=== PATIENT | female | born 1965 | race Caucasian/White ===

== ENCOUNTER 2020-10-26 17:03 | Observation (INO) | payer BC, OTHER ==
[2020-10-26 17:53] LABS: Absolute Neutrophil Ct (ANC) 11.48 (1.4-6.9); BASOPHIL % 0.3 % (0.0-0.4); Basophil (Absolute #) 0.04 (0-0.4); Eosinophil % 1.5 % (0.00-5.0); Eosinophil (Absolute #) 0.22 (0-0.5); Hemoglobin 13.6 gm/dl (12.0-16.0); Lymphocyte (Absolute #) 1.98 (1.0-4.6); Lymphocytes % 13.6 % (24.0-44.0); Mean Cell Volume 92.3 fl (78-100); Mean Corpuscular Hemoglobin 30.6 pg (26-32); Mean Corpuscular Hgb Concent. 33.2 g/dl (32-36); Mean Platelet Volume 9.6 fl (7.5-11.0); Monocyte (Absolute #) 0.82 (0.0-1.3); Monocytes % 5.6 % (0.0-12.0); Platelet Count 359 K/mm3 (150-450); Red Blood Count 4.44 M/mm3 (4.1-5.4); Red Cell Distribution Width 12.3 % (11.5-14.0); White Blood Count 14.5 K/mm3 (4.0-10.5)
[2020-10-26 18:04] LABS: ALBUMIN 4.8 g/dL (3.5-5.0); ALKALINE PHOSPHATASE 88 U/L (38-126); ANION GAP 13.3 MEQ/L (5-15); BLOOD UREA NITROGEN 12 mg/dL (7-17); CHLORIDE 98 mmol/L (98-107); Calcium 9.9 mg/dL (8.4-10.2); Carbon Dioxide 27 mmol/L (22-30); Creatinine 1 0.71 mg/dL (0.52-1.04); EST GLOMERULAR FILTRATION RATE > 60.0 ML/MIN; Glucose 124 mg/dL (74-106); NT PRO BNP 39.9 pg/mL (0-900); Potassium 3.4 mmol/L (3.5-5.1); SGOT/AST 30 U/L (14-36); SGPT/ALT 21 U/L (0-35); SODIUM 134 mmol/L (137-145); Total Protein 8.3 g/dL (6.3-8.2)
--- NOTE | 2020-10-26 19:32 | ERPHSYRPT ---
- History of Present Illness Time Seen by Provider: 10/26/20 17:45 Historian: patient Exam Limitations: no limitations Patient Subjective Stated Complaint: PT HERE FOR CHEST PAIN TO LEFT SIDE RADIATES TO LEFT SHOULDER. TOOK TUMS WITH SOME RELIEF AND HAD ASA 81MG PO AT HOME , Triage Nursing Assessment: PT ALERT, WALKED IN RESP EASY, SKIN W/D/P. FACE MASK IN PLACE, Physician History: Patient is a 55-year-old female presents to our ED with complaints of left-sided chest pain with radiation to her left shoulder. Symptoms started today and have been constant. No associated nausea vomiting or diaphoresis. No dizziness or syncope. Timing/Duration: today Activities at Onset: none Quality: aching Location: other (Left chest pain.) Chest Pain Radiation: arm Severity of Pain-Max: moderate Severity of Pain-Current: mild Modifying Factors: Improves With: nothing Associated Symptoms: denies symptoms Prior Chest Pain/Cardiac Workup: cardiac cath Nitro Today/Relief: no nitro taken today Aspirin Treatment Today: no aspirin today Hx Influenza Vaccination/Date Given: No Hx Pneumococcal Vaccination/Date Given: No Immunizations Up to Date: Yes Travel Risk - International Travel Have you traveled outside of the country in past 3 weeks: No - Coronavirus Screening Are you exhibiting any of the following symptoms?: No Close contact with a COVID-19 positive Pt in past 14-21 Days: No - Vaccine Status Have you recieved a Covid-19 vaccination: No - Review of Systems Constitutional: No Symptoms, No Fever, No Chills Eyes: No Symptoms Ears, Nose, & Throat: No Symptoms Respiratory: No Symptoms, No Cough, No Dyspnea Cardiac: No Symptoms, No Chest Pain, No Edema, No Syncope Abdominal/Gastrointestinal: No Symptoms, No Abdominal Pain, No Nausea, No Vomiting, No Diarrhea Genitourinary Symptoms: No Symptoms, No Dysuria Musculoskeletal: No Symptoms, No Back Pain, No Neck Pain Skin: No Symptoms, No Rash Neurological: No Symptoms, No Dizziness, No Focal Weakness, No Sensory Changes Psychological: No Symptoms Endocrine: No Symptoms Hematologic/Lymphatic: No Symptoms Immunological/Allergic: No Symptoms All Other Systems: Reviewed and Negative - Past Medical History Pertinent Past Medical History: Yes Cardiac History: Hypertension - Past Surgical History Past Surgical History: Yes Gastrointestinal: Cholecystectomy Female Surgical History: Dilation & Curettage, Tubal Ligation, Other Other Surgical History: ABLASION - Social History Smoking Status: Never smoker Exposure to second hand smoke: No Drug Use: none Patient Lives Alone: No - Female History Hx Last Menstrual Period: PSOT Hx Now: No - Nursing Vital Signs Nursing Vital Signs: Initial Vital Signs Temperature 98.7 F 10/26/20 17:29 Pulse Rate 77 10/26/20 17:29 Respiratory Rate 16 10/26/20 17:29 Blood Pressure 117/73 10/26/20 17:29 O2 Sat by Pulse Oximetry 98 10/26/20 17:29 Pain Scale Pain Intensity 7 - Physical Exam General Appearance: no apparent distress, alert Eye Exam: PERRL/EOMI, eyes nml inspection Ears, Nose, Throat Exam: normal ENT inspection, moist mucous membranes Neck Exam: normal inspection, non-tender, supple, full range of motion Respiratory Exam: normal breath sounds, lungs clear, No respiratory distress Cardiovascular Exam: regular rate/rhythm, normal heart sounds Gastrointestinal/Abdomen Exam: soft, No tenderness, No mass Back Exam: normal inspection, No CVA tenderness, No vertebral tenderness Extremity Exam: normal inspection, normal range of motion Neurologic Exam: alert, oriented x 3, cooperative, normal mood/affect, sensation nml, No motor deficits Skin Exam: normal color, warm, dry Lymphatic Exam: No adenopathy SpO2 Interpretation: normal SpO2: 98 O2 Delivery: Room Air - Course Nursing assessment & vital signs reviewed: Yes EKG Interpreted by Me: RATE (89), Sinus Rhythm, NORMAL AXIS, NORMAL INTERVALS - Radiology Exams Chest X-ray Interpretation: Interpreted by me (Negative chest x-ray.) Ordered Tests: Active Orders 24 hr Category Date Time Status Float Phlebotomist STAT Care 10/26/20 17:42 Active EKG-ER Only STAT Care 10/26/20 17:42 Active IV Insertion STAT Care 10/26/20 17:42 Active Pulse Oximetry (ED) STAT Care 10/26/20 17:42 Active CHEST 1 VIEW (PORTABLE) Stat Exams 10/26/20 17:42 Taken CBC W DIFF Stat Lab 10/26/20 17:46 Completed CMP Stat Lab 10/26/20 17:46 Completed D-DIMER QUANTITATIVE Stat Lab 10/26/20 19:36 Completed NT PRO BNP Stat Lab 10/26/20 17:46 Completed TROPONIN Q3H Lab 10/26/20 17:46 Completed TROPONIN Q3H Lab 10/26/20 20:45 Completed TROPONIN Q3H Lab 10/26/20 23:45 Ordered TROPONIN Q3H Lab 10/27/20 02:45 Ordered TROPONIN Q3H Lab 10/27/20 05:45 Ordered Medication Summary Discontinued Medications Generic Name Dose Route Start Last Admin Trade Name Rosalia PRN Reason Stop Dose Admin Aspirin 324 mg 10/26/20 19:33 10/26/20 19:47 Baby Aspirin 81 Mg Chew PO 10/26/20 19:34 324 mg STAT ONE Administration Aspirin Confirm 10/26/20 19:44 Baby Aspirin 81 Mg Chew Administered 10/26/20 19:45 Dose 324 mg .ROUTE .STK-MED ONE Morphine Sulfate 2 mg 10/26/20 21:04 10/26/20 23:23 Morphine Sulfate 2 Mg Inj IV 10/26/20 21:05 2 mg STAT ONE Administration Morphine Sulfate Confirm 10/26/20 23:22 Morphine Sulfate 2 Mg Inj Administered 10/26/20 23:23 Dose 2 mg .ROUTE .STK-MED ONE Nitroglycerin 1 gm 10/26/20 19:33 10/26/20 19:54 Nitro-Bid 2% Ud Packets TOP 10/26/20 19:34 1 gm STAT ONE Administration Nitroglycerin Confirm 10/26/20 19:44 Nitro-Bid 2% Ud Packets Administered 10/26/20 19:45 Dose 1 gm .ROUTE .STK-MED ONE Potassium Chloride 40 meq 10/26/20 19:33 10/26/20 19:47 Klor Con 10 Meq PO 10/26/20 19:34 40 meq STAT ONE Administration Potassium Chloride Confirm 10/26/20 19:44 Klor Con 10 Meq Administered 10/26/20 19:45 Dose 40 meq PO .STK-MED ONE Lab/Rad Data: Laboratory Result Diagrams 10/26/20 17:46 10/26/20 17:46 Laboratory Results 10/26/20 10/26/20 10/26/20 Range/Units 20:45 20:30 19:36 WBC (4.0-10.5) K/mm3 RBC (4.1-5.4) M/mm3 Hgb (12.0-16.0) gm/dl Hct (35-47) % MCV (78-100) fl MCH (26-32) pg MCHC (32-36) g/dl RDW (11.5-14.0) % Plt Count (150-450) K/mm3 MPV (7.5-11.0) fl Gran % (36.0-66.0) % Eos # (Auto) (0-0.5) Absolute Lymphs (auto) (1.0-4.6) Absolute Monos (auto) (0.0-1.3) Lymphocytes % (24.0-44.0) % Monocytes % (0.0-12.0) % Eosinophils % (0.00-5.0) % Basophils % (0.0-0.4) % Absolute Granulocytes (1.4-6.9) Basophils # (0-0.4) D-Dimer 647 H* (215-500) ng/mL Sodium (137-145) mmol/L Potassium (3.5-5.1) mmol/L Chloride (98-107) mmol/L Carbon Dioxide (22-30) mmol/L Anion Gap (5-15) MEQ/L BUN (7-17) mg/dL Creatinine (0.52-1.04) mg/dL Estimated GFR ML/MIN Glucose (74-106) mg/dL Calcium (8.4-10.2) mg/dL Total Bilirubin (0.2-1.3) mg/dL AST (14-36) U/L ALT (0-35) U/L Alkaline Phosphatase (38-126) U/L Troponin I < 0.012 (0.000-0.034) ng/mL NT-Pro-B Natriuret Pep (0-900) pg/mL Serum Total Protein (6.3-8.2) g/dL Albumin (3.5-5.0) g/dL SARS-CoV-2 (PCR) NEGATIVE (NEGATIVE) 10/26/20 10/26/20 10/26/20 Range/Units 17:46 17:46 17:46 WBC 14.5 H (4.0-10.5) K/mm3 RBC 4.44 (4.1-5.4) M/mm3 Hgb 13.6 (12.0-16.0) gm/dl Hct 41.0 (35-47) % MCV 92.3 (78-100) fl MCH 30.6 (26-32) pg MCHC 33.2 (32-36) g/dl RDW 12.3 (11.5-14.0) % Plt Count 359 (150-450) K/mm3 MPV 9.6 (7.5-11.0) fl Gran % 79.0 H (36.0-66.0) % Eos # (Auto) 0.22 (0-0.5) Absolute Lymphs (auto) 1.98 (1.0-4.6) Absolute Monos (auto) 0.82 (0.0-1.3) Lymphocytes % 13.6 L (24.0-44.0) % Monocytes % 5.6 (0.0-12.0) % Eosinophils % 1.5 (0.00-5.0) % Basophils % 0.3 (0.0-0.4) % Absolute Granulocytes 11.48 H (1.4-6.9) Basophils # 0.04 (0-0.4) D-Dimer (215-500) ng/mL Sodium 134 L (137-145) mmol/L Potassium 3.4 L (3.5-5.1) mmol/L Chloride 98 (98-107) mmol/L Carbon Dioxide 27 (22-30) mmol/L Anion Gap 13.3 (5-15) MEQ/L BUN 12 (7-17) mg/dL Creatinine 0.71 (0.52-1.04) mg/dL Estimated GFR > 60.0 ML/MIN Glucose 124 H (74-106) mg/dL Calcium 9.9 (8.4-10.2) mg/dL Total Bilirubin 0.40 (0.2-1.3) mg/dL AST 30 (14-36) U/L ALT 21 (0-35) U/L Alkaline Phosphatase 88 (38-126) U/L Troponin I < 0.012 (0.000-0.034) ng/mL NT-Pro-B Natriuret Pep 39.9 (0-900) pg/mL Serum Total Protein 8.3 H (6.3-8.2) g/dL Albumin 4.8 (3.5-5.0) g/dL SARS-CoV-2 (PCR) (NEGATIVE) - Progress Progress: improved Air Movement: good Progress Note: Case discussed with Dr. Cervantes who accepts admission to observation. Plan of car e discussed with patient. She agrees to admission at [facility] for further evaluation and treatment. Pulmonary work-up negative. Will admit for serial cardiac enzymes. Possible cardiac stress test. Portions of this note were created with voice recognition technology. There may be grammatical, spelling, punctuation or sound alike errors 10/26/20 23:43 Blood Culture(s) Obtained: No Antibiotics given: No Discussed with Dr.: Brayden Will see patient in: hospital (observation) Counseled pt/family regarding: lab results, diagnosis, rad results - Departure Departure Disposition: Observation Clinical Impression: Leukocytosis, ACS (acute coronary syndrome), Hypokalemia Condition: Stable Critical Care Time: No
[2020-10-26] MEDS ORDERED: Klor Con 10 MEQ PO ONE ×2 (19:33→19:44)
[2020-10-26] MEDS ORDERED: NITRO-BID 2% UD PACKETS TOP ONE (19:33)
[2020-10-26] MEDS ORDERED: BABY ASPIRIN 81 MG CHEW PO ONE (19:33)
[2020-10-26] MEDS ORDERED: BABY ASPIRIN 81 MG CHEW ONE (19:44)
[2020-10-26] MEDS ORDERED: NITRO-BID 2% UD PACKETS ONE (19:44)
[2020-10-26] MEDS ORDERED: MORPHINE SULFATE 2 MG INJ IV ONE (21:04)
[2020-10-26] MEDS ORDERED: MORPHINE SULFATE 2 MG INJ ONE (23:22)
[2020-10-26] MEDS ORDERED: Zofran 4 MG/2 ML VIAL IV PRN (23:43)
[2020-10-26] MEDS ORDERED: TYLENOL 325 MG PO PRN (23:43)
[2020-10-26] MEDS ORDERED: Senokot-S Tablet PO PRN (23:43)
[2020-10-26] MEDS ORDERED: MAALOX ES 30 ML UNIT DOSE PO PRN (23:43)
[2020-10-26] MEDS ORDERED: MILK OF MAGNESIA 30 ML PO PRN (23:43)
[2020-10-27] MEDS ORDERED: MORPHINE SULFATE 2 MG INJ IV PRN (00:31)
[2020-10-27 01:12] LABS: Risk Ratio 3.1
[2020-10-27] MEDS ORDERED: TORAdol 30 mg Injection IV PRN (08:07)
--- NOTE | 2020-10-27 08:12 | PCM.HP ---
History of Present Illness - Chief Complaint Chief Complaint: ACS, hypokalemia, leukocytosis History of Present Illness: is a 55 year old female who developed acute onset of pressure in her chest at work yesterday afternoon, the pain began in her right upper chest and progressed across her entire chest, she has no cough, no fever, no nausea/vomiting or diaphoresis associated with her pain, it is constant and heavy but sharp at times and worse with cough or deep inspiration. she has no history of CAD, continues to have pain this morning, denies recent covid illness. - Review of Systems Constitutional: No Fever, No Chills Respiratory: No Cough, No Short Of Breath Cardiac: Chest Pain Abdominal/Gastrointestinal: No Abdominal Pain, No Nausea, No Vomiting, No Diar marisa Genitourinary Symptoms: No Dysuria Skin: No Rash All Other Systems: Reviewed and Negative Medications & Allergies Home Medications: Home Medication List Lisinopril/Hydrochlorothiazide [Lisinopril-Hctz 10-12.5 mg Tab] 1 tab PO DAILY 10/27/20 [History Confirmed 10/27/20] Allergies/Adverse Reactions: Allergies Allergy/AdvReac Type Severity Reaction Status Date / Time No Known Drug Allergies Allergy Unverified 10/27/20 00:18 - Past Medical History Past Medical History: Yes Cardiac History: Hypertension - Female History Hx Last Menstrual Period: PSOT Are you now?: No - Past Surgical History Past Surgical History: Yes Cardiac History: No Pertinent History Respiratory Surgery: No Pertinent History GI Surgical History: Cholecystectomy Genitourinary Surgical Hx: No Pertinent History Musculskeletal Surgical Hx: No Pertinent History Female Surgical History: Dilation & Curettage, Tubal Ligation, Other Other Surgical History: Uterin ABLASION - Social History Smoking Status: Never smoker Exposure to second hand smoke: No Alcohol: None Drug Use: none - Physical Exam Vital Signs: Vital Signs - 24 hr Temp Pulse Resp BP Pulse Ox 10/27/20 08:00 98.3 F 69 18 106/52 97 10/27/20 04:00 97 10/27/20 03:10 99.1 F 77 20 98/54 99 10/27/20 01:03 99.0 F 97 H 16 105/61 96 10/27/20 00:29 96 10/26/20 23:44 98 10/26/20 21:00 96.7 F 113 H 24 116/75 96 10/26/20 20:00 103 H 24 126/87 98 10/26/20 19:01 105 H 35 H 108/75 98 10/26/20 19:00 98 10/26/20 17:29 98.7 F 77 16 117/73 98 General Appearance: no apparent distress, alert Neurologic Exam: alert, oriented x 3 Respiratory Exam: normal breath sounds, lungs clear, No respiratory distress Cardiovascular Exam: regular rate/rhythm, normal heart sounds, normal peripheral pulses Gastrointestinal/Abdomen Exam: soft, normal bowel sounds, No tenderness, No mass Extremity Exam: normal inspection, normal range of motion, pelvis stable Skin Exam: normal color, warm, dry, No rash Results - Labs Lab/Micro Results: Lab Results-Last 24 Hours 10/26/20 10/26/20 10/26/20 Range/Units 17:46 17:46 17:46 WBC 14.5 H (4.0-10.5) K/mm3 RBC 4.44 (4.1-5.4) M/mm3 Hgb 13.6 (12.0-16.0) gm/dl Hct 41.0 (35-47) % MCV 92.3 (78-100) fl MCH 30.6 (26-32) pg MCHC 33.2 (32-36) g/dl RDW 12.3 (11.5-14.0) % Plt Count 359 (150-450) K/mm3 MPV 9.6 (7.5-11.0) fl Gran % 79.0 H (36.0-66.0) % Eos # (Auto) 0.22 (0-0.5) Absolute Lymphs (auto) 1.98 (1.0-4.6) Absolute Monos (auto) 0.82 (0.0-1.3) Lymphocytes % 13.6 L (24.0-44.0) % Monocytes % 5.6 (0.0-12.0) % Eosinophils % 1.5 (0.00-5.0) % Basophils % 0.3 (0.0-0.4) % Absolute Granulocytes 11.48 H (1.4-6.9) Basophils # 0.04 (0-0.4) D-Dimer (215-500) ng/mL Sodium 134 L (137-145) mmol/L Potassium 3.4 L (3.5-5.1) mmol/L Chloride 98 (98-107) mmol/L Carbon Dioxide 27 (22-30) mmol/L Anion Gap 13.3 (5-15) MEQ/L BUN 12 (7-17) mg/dL Creatinine 0.71 (0.52-1.04) mg/dL Estimated GFR > 60.0 ML/MIN Glucose 124 H (74-106) mg/dL Calcium 9.9 (8.4-10.2) mg/dL Total Bilirubin 0.40 (0.2-1.3) mg/dL AST 30 (14-36) U/L ALT 21 (0-35) U/L Alkaline Phosphatase 88 (38-126) U/L Troponin I < 0.012 (0.000-0.034) ng/mL NT-Pro-B Natriuret Pep 39.9 (0-900) pg/mL Serum Total Protein 8.3 H (6.3-8.2) g/dL Albumin 4.8 (3.5-5.0) g/dL Triglycerides (30-150) mg/dL Cholesterol (50-200) mg/dL LDL Cholesterol (30-100) mg/dL HDL Cholesterol (40-60) mg/dL Heart Disease Risk Ratio SARS-CoV-2 (PCR) (NEGATIVE) 10/26/20 10/26/20 10/26/20 Range/Units 19:36 20:30 20:45 WBC (4.0-10.5) K/mm3 RBC (4.1-5.4) M/mm3 Hgb (12.0-16.0) gm/dl Hct (35-47) % MCV (78-100) fl MCH (26-32) pg MCHC (32-36) g/dl RDW (11.5-14.0) % Plt Count (150-450) K/mm3 MPV (7.5-11.0) fl Gran % (36.0-66.0) % Eos # (Auto) (0-0.5) Absolute Lymphs (auto) (1.0-4.6) Absolute Monos (auto) (0.0-1.3) Lymphocytes % (24.0-44.0) % Monocytes % (0.0-12.0) % Eosinophils % (0.00-5.0) % Basophils % (0.0-0.4) % Absolute Granulocytes (1.4-6.9) Basophils # (0-0.4) D-Dimer 647 H* (215-500) ng/mL Sodium (137-145) mmol/L Potassium (3.5-5.1) mmol/L Chloride (98-107) mmol/L Carbon Dioxide (22-30) mmol/L Anion Gap (5-15) MEQ/L BUN (7-17) mg/dL Creatinine (0.52-1.04) mg/dL Estimated GFR ML/MIN Glucose (74-106) mg/dL Calcium (8.4-10.2) mg/dL Total Bilirubin (0.2-1.3) mg/dL AST (14-36) U/L ALT (0-35) U/L Alkaline Phosphatase (38-126) U/L Troponin I < 0.012 (0.000-0.034) ng/mL NT-Pro-B Natriuret Pep (0-900) pg/mL Serum Total Protein (6.3-8.2) g/dL Albumin (3.5-5.0) g/dL Triglycerides (30-150) mg/dL Cholesterol (50-200) mg/dL LDL Cholesterol (30-100) mg/dL HDL Cholesterol (40-60) mg/dL Heart Disease Risk Ratio SARS-CoV-2 (PCR) NEGATIVE (NEGATIVE) 10/27/20 10/27/20 10/27/20 Range/Units 01:05 01:05 03:35 WBC (4.0-10.5) K/mm3 RBC (4.1-5.4) M/mm3 Hgb (12.0-16.0) gm/dl Hct (35-47) % MCV (78-100) fl MCH (26-32) pg MCHC (32-36) g/dl RDW (11.5-14.0) % Plt Count (150-450) K/mm3 MPV (7.5-11.0) fl Gran % (36.0-66.0) % Eos # (Auto) (0-0.5) Absolute Lymphs (auto) (1.0-4.6) Absolute Monos (auto) (0.0-1.3) Lymphocytes % (24.0-44.0) % Monocytes % (0.0-12.0) % Eosinophils % (0.00-5.0) % Basophils % (0.0-0.4) % Absolute Granulocytes (1.4-6.9) Basophils # (0-0.4) D-Dimer (215-500) ng/mL Sodium (137-145) mmol/L Potassium (3.5-5.1) mmol/L Chloride (98-107) mmol/L Carbon Dioxide (22-30) mmol/L Anion Gap (5-15) MEQ/L BUN (7-17) mg/dL Creatinine (0.52-1.04) mg/dL Estimated GFR ML/MIN Glucose (74-106) mg/dL Calcium (8.4-10.2) mg/dL Total Bilirubin (0.2-1.3) mg/dL AST (14-36) U/L ALT (0-35) U/L Alkaline Phosphatase (38-126) U/L Troponin I < 0.012 < 0.012 (0.000-0.034) ng/mL NT-Pro-B Natriuret Pep (0-900) pg/mL Serum Total Protein (6.3-8.2) g/dL Albumin (3.5-5.0) g/dL Triglycerides 64 (30-150) mg/dL Cholesterol 171 (50-200) mg/dL LDL Cholesterol 96 (30-100) mg/dL HDL Cholesterol 55 (40-60) mg/dL Heart Disease Risk Ratio 3.1 SARS-CoV-2 (PCR) (NEGATIVE) 10/27/20 Range/Units 05:45 WBC (4.0-10.5) K/mm3 RBC (4.1-5.4) M/mm3 Hgb (12.0-16.0) gm/dl Hct (35-47) % MCV (78-100) fl MCH (26-32) pg MCHC (32-36) g/dl RDW (11.5-14.0) % Plt Count (150-450) K/mm3 MPV (7.5-11.0) fl Gran % (36.0-66.0) % Eos # (Auto) (0-0.5) Absolute Lymphs (auto) (1.0-4.6) Absolute Monos (auto) (0.0-1.3) Lymphocytes % (24.0-44.0) % Monocytes % (0.0-12.0) % Eosinophils % (0.00-5.0) % Basophils % (0.0-0.4) % Absolute Granulocytes (1.4-6.9) Basophils # (0-0.4) D-Dimer (215-500) ng/mL Sodium (137-145) mmol/L Potassium (3.5-5.1) mmol/L Chloride (98-107) mmol/L Carbon Dioxide (22-30) mmol/L Anion Gap (5-15) MEQ/L BUN (7-17) mg/dL Creatinine (0.52-1.04) mg/dL Estimated GFR ML/MIN Glucose (74-106) mg/dL Calcium (8.4-10.2) mg/dL Total Bilirubin (0.2-1.3) mg/dL AST (14-36) U/L ALT (0-35) U/L Alkaline Phosphatase (38-126) U/L Troponin I < 0.012 (0.000-0.034) ng/mL NT-Pro-B Natriuret Pep (0-900) pg/mL Serum Total Protein (6.3-8.2) g/dL Albumin (3.5-5.0) g/dL Triglycerides (30-150) mg/dL Cholesterol (50-200) mg/dL LDL Cholesterol (30-100) mg/dL HDL Cholesterol (40-60) mg/dL Heart Disease Risk Ratio SARS-CoV-2 (PCR) (NEGATIVE) - Radiology Impressions Radiology Exams & Impressions: Radiology Procedures Category Date Time Status CHEST 1 VIEW (PORTABLE) Stat Exams 10/26/20 17:42 Taken CHEST WITH CONTRAST [CT] Stat Exams 10/27/20 01:52 Taken - Other Procedures and Tests Respiratory Therapy 10/27/20 00:29 Oxygen NASAL CANNULA 2 lpm 10/28/20 05:00 EKG ONCE 10/29/20 05:00 EKG ONCE 10/30/20 05:00 EKG ONCE Assessment/Plan (1) Chest pain Current Visit: Yes Status: Acute Assessment & Plan: troponin negative thus far and no obvious signs of ischemia on EKG, CT scan no obvious central pulmonary embolus but has some motion artifact. recommend echo and cardiology consult. Code(s): R07.9 - CHEST PAIN, UNSPECIFIED
--- NOTE | 2020-10-27 09:04 | XRAY ---
Indication: Chest pain. Multiple contiguous images obtained through the chest using 80 cc Isovue 370 contrast and PE protocol. Comparison: None There is good opacification of the pulmonary arteries. No pulmonary embolus. Heart is borderline enlarged. Aorta normal in course and caliber. No pathologic mediastinal/hilar lymphadenopathy. Lungs demonstrates moderate bibasilar subsegmental atelectasis/scarring. No suspicious pulmonary mass, infiltrate, effusion, or pneumothorax. Bony thorax intact with minimal degenerative changes throughout the spine. Limited upper abdomen demonstrates cholecystectomy clips. Impression: 1. Negative for pulmonary embolus. 2. Incidental borderline cardiomegaly and bibasilar subsegmental atelectasis/scarring. 3. Remaining CT chest with contrast exam is negative. Comment: Preliminary interpretation made by [facility]. No critical discrepancy.
--- NOTE | 2020-10-27 09:06 | XRAY ---
Indication: Chest pain. Comparison: None Portable chest demonstrates minimal left base subsegmental atelectasis/scarring. Remaining heart and lungs unremarkable. Bony thorax intact.
[2020-10-27] MEDS ORDERED: Zestril 10 MG PO SCH (10:00)
[2020-10-27] MEDS ORDERED: ECOTRIN 81 MG PO SCH (10:00)
[2020-10-27] MEDS ORDERED: PROTONIX 40 MG IV IV SCH (10:00)
[2020-10-27] MEDS ORDERED: NON-FORMULARY ITEM (Lisinopril/Hydrochlorothiazide [Lisinopril-Hctz 10-12.5 Mg Tab] 1 TAB) PO SCH (10:00)
[2020-10-27] MEDS ORDERED: hydroDIURIL 25 MG PO SCH (10:00)
[2020-10-27 11:47] VITALS: O2SAT 96
[2020-10-27 16:10] VITALS: BP 101/50; PULSE 73
--- NOTE | 2020-10-28 15:45 | ECHO ---
DATE OF PROCEDURE: 10/27/2020 CLINICAL INFORMATION: Chest pain. The M-mode 2D, and Doppler echocardiogram including color flow Doppler shows the left ventricle is normal in size at 4.9 cm. There is no thrombus present. The septal wall thickness is normal at 0.9 cm. The left ventricular posterior wall thickness is normal at 0.7 cm. There is normal contractility of the left ventricle. The ejection fraction is estimated to be 55 to 60%. The right ventricle is normal. The left atrium is normal in size at 3.3 cm. The interatrial septum is intact. The right atrium is normal. The aortic valve opens well. It is trileaflet. There is no aortic regurgitation. There is mitral valve leaflet thickening. Prolapse of the anterior mitral valve leaflet cannot be ruled out. There is mild tricuspid regurgitation. The right ventricular systolic pressure is elevated at 32 mm of Mercury. The pulmonic valve is not well visualized. The aortic root is normal at 3.4 cm. There is no pericardial effusion present. IMPRESSION: 1) NORMAL CONTRACTILITY OF THE LEFT VENTRICLE. 2) MITRAL VALVE LEAFLET THICKENING, PROLAPSE OF ANTERIOR MITRAL VALVE LEAFLET CANNOT BE RULED OUT. 3) MILD TRICUSPID REGURGITATION. 4) MILD PULMONARY HYPERTENSION.
[2020-10-29 12:14] LABS: C-Reactive Protein, Cardiac 38.91 mg/L (0.00-3.00)
== END 2020-10-27 19:00 | disposition home or self-care (01) ==
LOC: ED 17:03 → ICU 23:39
PROVIDERS: ADMIT Family Medicine; ATTEND Family Medicine
DX: R07.9 Chest pain, unspecified (principal); D72.829 Elevated white blood cell count, unspecified; R06.02 Shortness of breath; E87.6 Hypokalemia; R42 Dizziness and giddiness; I10 Essential (primary) hypertension; Z20.822 Contact with and (suspected) exposure to COVID-19; Z79.899 Other long term (current) drug therapy
CPT/HCPCS: 36415; 71045; 71260; 80053; 80061; 83721; 83880; 84484; 85025; 85379; 85652; 86140; 86141; 93005; 93041; 93268; 93306; 94760; 94762; 96375; 99285; G0378; U0003; 96374; J1885; J2270; J2405; A9270-GY

== ENCOUNTER 2022-01-22 02:08 | Emergency (ER) | payer BC, OTHER ==
[2022-01-22] MEDS ORDERED: BABY ASPIRIN 81 MG CHEW PO ONE (02:42)
[2022-01-22] MEDS ORDERED: TORAdol 30 mg Injection IV ONE (02:43)
[2022-01-22] MEDS ORDERED: PROTONIX 40 MG IV IV ONE ×2 (02:43→03:04)
[2022-01-22] MEDS ORDERED: TORAdol 30 mg Injection ONE (03:04)
--- NOTE | 2022-01-22 03:05 | ERPHSYRPT ---
- History of Present Illness Time Seen by Provider: 01/22/22 02:42 Historian: patient Exam Limitations: no limitations Patient Subjective Stated Complaint: pt states she has been having what feels like pleuritic chest pain for the entire day yesterday and this AM. states that she hurts more when she takes a deep breath in. pt states she has a history pf [leurisy and states the pain ffels the same as last time. States that she has pain 6/10 at this time. pt states she has been on minocycline for a rash on face and arm, also on two types of steroid cream and states that she felt it may be a reason why she was not feeling well Triage Nursing Assessment: pt alert and oriented. able to answer questions appropriatly. ambulated to room without assist. pt is laying in bed with back of bed sitting straight up due to pain that radiates to shoulders and epigastrium from chest Physician History: 56 years old female presented in the ER with chief complaint of substernal chest pain with some radiation to the back, moderate intensity for the last 12 hours with progressively worsening. Patient reports sharp pain which is aggravated with movements and better with sitting up, hurts to take a deep breath. Reports symptoms similar to last time when she had a pleurisy. Denies recent fever chills or cough. Denies any history of CAD. Does report taking minor cyclin for facial rash. Timing/Duration: hour(s) (12), constant, gradual onset, worse Activities at Onset: rest Quality: sharpness Location: substernal, central Chest Pain Radiation: back Severity of Pain-Max: severe Severity of Pain-Current: moderate Modifying Factors: Improves With: rest. Worsens With: movement Associated Symptoms: hurts to breathe, No vomiting, No palpitations, No abdominal pain, No shortness of breath Prior Chest Pain/Cardiac Workup: no prior chest pain, non-cardiac Nitro Today/Relief: no nitro taken today Aspirin Treatment Today: no aspirin today Allergies/Adverse Reactions: No Known Drug Allergies Allergy (Unverified 10/27/20 00:18) Home Medications: Lisinopril/Hydrochlorothiazide [Lisinopril-Hctz 10-12.5 mg Tab] 1 tab PO DAILY 10/27/20 [History] Hx Influenza Vaccination/Date Given: No Hx Pneumococcal Vaccination/Date Given: No Travel Risk - International Travel Have you traveled outside of the country in past 3 weeks: No - Coronavirus Screening Are you exhibiting any of the following symptoms?: No - Vaccine Status Have you recieved a Covid-19 vaccination: No - Review of Systems Constitutional: No Symptoms Eyes: No Symptoms Ears, Nose, & Throat: No Symptoms Respiratory: No Symptoms Cardiac: Chest Pain Abdominal/Gastrointestinal: No Symptoms Genitourinary Symptoms: No Symptoms Musculoskeletal: No Symptoms Skin: No Symptoms Neurological: No Symptoms Psychological: No Symptoms Endocrine: No Symptoms Hematologic/Lymphatic: No Symptoms Immunological/Allergic: No Symptoms - Past Medical History Pertinent Past Medical History: Yes Cardiac History: Hypertension Other Medical History: hashimotos - Past Surgical History Past Surgical History: Yes Cardiac: No Pertinent History Respiratory: No Pertinent History Gastrointestinal: Cholecystectomy Genitourinary: No Pertinent History Musculoskeletal: No Pertinent History Female Surgical History: Dilation & Curettage, Tubal Ligation, Other Other Surgical History: Uterin ABLASION - Social History Smoking Status: Never smoker Exposure to second hand smoke: No Drug Use: none Patient Lives Alone: No - Nursing Vital Signs Nursing Vital Signs: Initial Vital Signs Temperature 97.8 F 01/22/22 02:09 Pulse Rate 60 01/22/22 02:09 Respiratory Rate 20 01/22/22 02:09 Blood Pressure 165/103 01/22/22 02:09 O2 Sat by Pulse Oximetry 98 01/22/22 02:09 Pain Scale Pain Intensity 3 - Physical Exam General Appearance: no apparent distress, alert Eye Exam: PERRL/EOMI Ears, Nose, Throat Exam: normal ENT inspection Neck Exam: normal inspection, non-tender, supple, full range of motion Respiratory Exam: normal breath sounds, lungs clear Cardiovascular Exam: regular rate/rhythm, normal heart sounds Gastrointestinal/Abdomen Exam: soft, normal bowel sounds, No tenderness Back Exam: normal inspection, normal range of motion Extremity Exam: normal inspection, normal range of motion Neurologic Exam: alert, oriented x 3, cooperative Skin Exam: normal color SpO2 Interpretation: normal SpO2: 98 O2 Delivery: Room Air - Course EKG Interpreted by Me: RATE, Sinus Rhythm, NORMAL AXIS, NORMAL INTERVALS, Non- specific ST Changes Ordered Tests: Active Orders 24 hr Category Date Time Status Title Assistant STAT Care 01/22/22 02:42 Active EKG-ER Only STAT Care 01/22/22 02:42 Active IV Insertion STAT Care 01/22/22 02:42 Active CHEST 1 VIEW (PORTABLE) Stat Exams 01/22/22 02:42 Taken CHEST WITH CONTRAST [CT] Stat Exams 01/22/22 03:45 Taken CBC W DIFF Stat Lab 01/22/22 03:04 Completed CK-Creatinine Phosphokinase Stat Lab 01/22/22 03:04 Completed CMP Stat Lab 01/22/22 03:04 Completed D-DIMER QUANTITATIVE Stat Lab 01/22/22 03:04 Completed NT PRO BNP Stat Lab 01/22/22 03:04 Completed TROPONIN Q4H Lab 01/22/22 03:04 Completed TROPONIN Q4H Lab 01/22/22 06:07 Completed TROPONIN Q4H Lab 01/22/22 10:45 Ordered Medication Summary Discontinued Medications Generic Name Dose Route Start Last Admin Trade Name Freq PRN Reason Stop Dose Admin Hydrocodone Bitart/Acetaminophen 1 tab 01/22/22 06:48 01/22/22 06:53 Hydrocodone/Apap 5/325 1 Tab Tablet PO 01/22/22 06:49 1 tab STAT ONE Administration Hydrocodone Bitart/Acetaminophen Confirm 01/22/22 06:52 Hydrocodone/Apap 5/325 1 Tab Tablet Administered 01/22/22 06:53 Dose 1 tab .ROUTE .STK-MED ONE Aspirin 324 mg 01/22/22 02:42 01/22/22 03:05 Aspirin 81 Mg Tab.Chew PO 01/22/22 02:43 324 mg STAT ONE Administration Ketorolac Tromethamine 30 mg 01/22/22 02:43 01/22/22 03:05 Ketorolac Tromethamine 30 Mg/Ml Inj IV 01/22/22 02:44 30 mg STAT ONE Administration Ketorolac Tromethamine Confirm 01/22/22 03:04 Ketorolac Tromethamine 30 Mg/Ml Inj Administered 01/22/22 03:05 Dose 30 mg .ROUTE .STK-MED ONE Pantoprazole Sodium 40 mg 01/22/22 02:43 01/22/22 03:05 Pantoprazole 40 Mg Vial IV 01/22/22 02:44 40 mg STAT ONE Administration Pantoprazole Sodium Confirm 01/22/22 03:04 Pantoprazole 40 Mg Vial Administered 01/22/22 03:05 Dose 40 mg IV .STK-MED ONE Lab/Rad Data: Laboratory Result Diagrams 01/22/22 03:04 01/22/22 03:04 Laboratory Results 01/22/22 01/22/22 01/22/22 Range/Units 06:07 03:04 03:04 WBC (4.0-10.5) x10^3/uL RBC (4.1-5.4) x10^6/uL Hgb (12.0-16.0) g/dL Hct (35-47) % MCV (78-100) fL MCH (26-32) pg MCHC (32-36) g/dL RDW (11.5-14.0) % Plt Count (150-450) x10^3/uL MPV (7.5-11.0) fL Gran % (36.0-66.0) % Immature Gran % (Auto) (0.00-0.4) % Nucleat RBC Rel Count (0.00-0.1) % Eos # (Auto) (0-0.5) x10^3/uL Immature Gran # (Auto) (0.00-0.03) x10^3u/L Absolute Lymphs (auto) (1.0-4.6) x10^3/uL Absolute Monos (auto) (0.0-1.3) x10^3/uL Absolute Nucleated RBC (0.00-0.01) x10^3u/L Lymphocytes % (24.0-44.0) % Monocytes % (0.0-12.0) % Eosinophils % (0.00-5.0) % Basophils % (0.0-0.4) % Absolute Granulocytes (1.4-6.9) x10^3/uL Basophils # (0-0.4) x10^3/uL D-Dimer 0.51 H (0.0-0.50) mg/L Sodium (137-145) mmol/L Potassium (3.5-5.1) mmol/L Chloride (98-107) mmol/L Carbon Dioxide (22-30) mmol/L Anion Gap (5-15) MEQ/L BUN (7-17) mg/dL Creatinine (0.52-1.04) mg/dL Estimated GFR ML/MIN Glucose (74-106) mg/dL Calcium (8.4-10.2) mg/dL Total Bilirubin (0.2-1.3) mg/dL AST (14-36) U/L ALT (0-35) U/L Alkaline Phosphatase (38-126) U/L Creatine Kinase (30-135) U/L Troponin I < 0.012 < 0.012 (0.000-0.034) ng/mL NT-Pro-B Natriuret Pep (0-900) pg/mL Serum Total Protein (6.3-8.2) g/dL Albumin (3.5-5.0) g/dL 01/22/22 01/22/22 Range/Units 03:04 03:04 WBC 11.5 H (4.0-10.5) x10^3/uL RBC 4.75 (4.1-5.4) x10^6/uL Hgb 14.1 (12.0-16.0) g/dL Hct 43.5 (35-47) % MCV 91.6 (78-100) fL MCH 29.7 (26-32) pg MCHC 32.4 (32-36) g/dL RDW 11.8 (11.5-14.0) % Plt Count 333 (150-450) x10^3/uL MPV 9.6 (7.5-11.0) fL Gran % 83.0 H (36.0-66.0) % Immature Gran % (Auto) 0.3 (0.00-0.4) % Nucleat RBC Rel Count 0.0 (0.00-0.1) % Eos # (Auto) 0.05 (0-0.5) x10^3/uL Immature Gran # (Auto) 0.03 (0.00-0.03) x10^3u/L Absolute Lymphs (auto) 0.99 L (1.0-4.6) x10^3/uL Absolute Monos (auto) 0.85 (0.0-1.3) x10^3/uL Absolute Nucleated RBC 0.00 (0.00-0.01) x10^3u/L Lymphocytes % 8.6 L (24.0-44.0) % Monocytes % 7.4 (0.0-12.0) % Eosinophils % 0.4 (0.00-5.0) % Basophils % 0.3 (0.0-0.4) % Absolute Granulocytes 9.50 H (1.4-6.9) x10^3/uL Basophils # 0.04 (0-0.4) x10^3/uL D-Dimer (0.0-0.50) mg/L Sodium 136 L (137-145) mmol/L Potassium 4.0 (3.5-5.1) mmol/L Chloride 101 (98-107) mmol/L Carbon Dioxide 28 (22-30) mmol/L Anion Gap 10.9 (5-15) MEQ/L BUN 13 (7-17) mg/dL Creatinine 0.71 (0.52-1.04) mg/dL Estimated GFR > 60.0 ML/MIN Glucose 112 H (74-106) mg/dL Calcium 9.8 (8.4-10.2) mg/dL Total Bilirubin 0.70 (0.2-1.3) mg/dL AST 32 (14-36) U/L ALT 25 (0-35) U/L Alkaline Phosphatase 113 (38-126) U/L Creatine Kinase 64 (30-135) U/L Troponin I (0.000-0.034) ng/mL NT-Pro-B Natriuret Pep 55.1 (0-900) pg/mL Serum Total Protein 8.6 H (6.3-8.2) g/dL Albumin 4.8 (3.5-5.0) g/dL - Progress Progress: improved Air Movement: good Progress Note: 01/22/22 06:42 fllll Blood Culture(s) Obtained: No Antibiotics given: No Counseled pt/family regarding: lab results, diagnosis, need for follow-up, carmen kenney - Departure Departure Disposition: Home Clinical Impression: Atypical chest pain, Pneumonia Condition: Stable Critical Care Time: No Referrals: TIMUR VILLALTA MD [Primary Care Provider] - Follow up/PCP as directed (1-2 days for reeval) ENRIQUE SUMNER [ACTIVE STAFF] - Follow up/PCP as directed (Call for appointment for reevaluation) Instructions: Angina (DC), Chest Pain (DC) Additional Instructions: Take Tylenol/ibuprofen as needed. Follow-up with primary care and cardiology for reevaluation. Return to ER for any worsening. Prescriptions: Ketorolac Trometh 10 mg Tab [TORAdol 10 MG TABLET] 10 mg PO Q8H PRN PRN 5 Days #15 tablet PRN Reason: Pain Doxycycline Hyclate 100 mg [Vibramycin 100 MG] 100 mg PO BID #20 tab
[2022-01-22 03:07] LABS: Basophil (Absolute #) 0.04 x10^3/uL (0-0.4); Eosinophil % 0.4 % (0.00-5.0); Eosinophil (Absolute #) 0.05 x10^3/uL (0-0.5); Hematocrit 43.5 % (35-47); Hemoglobin 14.1 g/dL (12.0-16.0); Lymphocyte (Absolute #) 0.99 x10^3/uL (1.0-4.6); Lymphocytes % 8.6 % (24.0-44.0); Mean Cell Volume 91.6 fL (78-100); Mean Corpuscular Hemoglobin 29.7 pg (26-32); Mean Corpuscular Hgb Concent. 32.4 g/dL (32-36); Mean Platelet Volume 9.6 fL (7.5-11.0); Monocyte (Absolute #) 0.85 x10^3/uL (0.0-1.3); Monocytes % 7.4 % (0.0-12.0); Platelet Count 333 x10^3/uL (150-450); Red Blood Count 4.75 x10^6/uL (4.1-5.4); Red Cell Distribution Width 11.8 % (11.5-14.0); White Blood Count 11.5 x10^3/uL (4.0-10.5)
[2022-01-22 03:26] LABS: ALBUMIN 4.8 g/dL (3.5-5.0); ALKALINE PHOSPHATASE 113 U/L (38-126); ANION GAP 10.9 MEQ/L (5-15); BLOOD UREA NITROGEN 13 mg/dL (7-17); CHLORIDE 101 mmol/L (98-107); CK-Creatinine Phosphokinase 64 U/L (30-135); Calcium 9.8 mg/dL (8.4-10.2); Carbon Dioxide 28 mmol/L (22-30); Creatinine 1 0.71 mg/dL (0.52-1.04); EST GLOMERULAR FILTRATION RATE > 60.0 ML/MIN; Glucose 112 mg/dL (74-106); NT PRO BNP 55.1 pg/mL (0-900); SGOT/AST 32 U/L (14-36); SGPT/ALT 25 U/L (0-35); SODIUM 136 mmol/L (137-145); Total Protein 8.6 g/dL (6.3-8.2)
[2022-01-22 06:44] VITALS: O2SAT 98
[2022-01-22] MEDS ORDERED: NORCO 5/325 MG PO ONE (06:48)
[2022-01-22] MEDS ORDERED: NORCO 5/325 MG ONE (06:52)
[2022-01-22] MEDS ORDERED: Vibramycin 100 MG PO ONE (06:55)
[2022-01-22] MEDS ORDERED: Vibramycin 100 MG ONE (06:57)
[2022-01-22 07:41] VITALS: BP 131/87; PULSE 80
--- NOTE | 2022-01-22 08:52 | XRAY ---
Indication: Pleuritic chest pain. Elevated d-dimer. Multiple contiguous axial images obtained through the chest using 100 cc Isovue 370 contrast and PE protocol. Comparison: October 27, 2020 Good opacification of the pulmonary arteries to includes the lobar and segmental branches. No pulmonary embolus. Heart is not enlarged. Aorta is normal in course and caliber. No pathologic mediastinal/hilar lymphadenopathy. Lungs demonstrates bibasilar subsegmental atelectasis/scarring. No suspicious pulmonary mass, infiltrate, effusion, or pneumothorax. Bony thorax intact with mild degenerative changes throughout the spine. Limited upper abdomen again demonstrates cholecystectomy clips. Impression: 1. Continued negative pulmonary embolus. No new/acute cardiopulmonary abnormalities. 2. Again bibasilar subsegmental atelectasis/scarring and degenerative spondylosis. Comment: Preliminary interpretation made by [facility]. No critical discrepancy.
--- NOTE | 2022-01-22 09:04 | XRAY ---
Indication: Chest pain. Comparison: October 26, 2020 Portable apical lordotic chest slightly underinflated and clear. Heart not enlarged. Bony thorax intact. No new/acute findings. Impression: Nonacute underinflated chest.
== END 2022-01-22 07:41 | disposition home or self-care (01) ==
LOC: ED 02:08
DX: J18.9 Pneumonia, unspecified organism (principal); R07.89 Other chest pain; I10 Essential (primary) hypertension; Z79.899 Other long term (current) drug therapy; Z28.310 Unvaccinated for COVID-19
CPT/HCPCS: 36000; 36415; 71045; 71260; 80053; 82550; 83880; 84484; 85025; 85379; 93005; 93041; 96374; 96375; 99284; J1885; A9270-GY